=== PATIENT | female | born 1970 | race Caucasian/White ===

== ENCOUNTER 2022-09-21 12:02 | Emergency (ER) | payer BC, MEDICAID ==
[~2022-09-21] VITALS: Ht 154.9 cm; Wt 55.8 kg
[2022-09-21] MEDS ORDERED: KETOROLAC TROMETHAMINE INJ 30 MG/ML VIAL ONE (13:12)
[2022-09-21] MEDS ORDERED: KETOROLAC TROMETHAMINE INJ 60 MG/2 ML VIAL IM ONE (13:30)
[2022-09-21] MEDS ORDERED: CYCL5TAB PO (14:26)
[2022-09-21] MEDS ORDERED: NAPR-1164 PO (14:26)
[2022-09-21] MEDS ORDERED: LIDO30AD10 TP (14:26)
--- NOTE | 2022-09-21 14:35 | NUR ---
Patient discharged to home in stable condition. Written and verbal after care instructions given. Patient verbalizes understanding of instruction. Prescriptions given to patient with instructions on how to obtain and administer medications. Patient verbalized understanding.
[2022-09-21 14:37] VITALS: BP 122/77
== END 2022-09-21 14:37 | disposition home or self-care (01) ==
LOC: ER 12:33
DX: S33.5XXA Sprain of ligaments of lumbar spine, initial encounter (principal); Z79.899 Other long term (current) drug therapy; W18.43XA Slipping, tripping and stumbling without falling due to stepping from one level to another, initial encounter; Y93.01 Activity, walking, marching and hiking; Y92.89 Other specified places as the place of occurrence of the external cause; Y99.8 Other external cause status
CPT/HCPCS: 99284; 96372; 72100; 72074; J1885